=== PATIENT | female | born 1985 | race Caucasian/White ===

== ENCOUNTER 2022-02-23 16:26 | Emergency (ER) | payer MEDICAID ==
[~2022-02-23] VITALS: Ht 170.2 cm; Wt 66.4 kg
[2022-02-23 17:36] VITALS: BP 120/76
[2022-02-23 17:53] VITALS: BP 120/76
[2022-02-23] MEDS ORDERED: DOXY-690 PO (19:58)
[2022-02-23] MEDS ORDERED: cefTRIAXone 1,000 MG in LIDOCAINE MPF 1% 2.1 ML IM ONE (20:00)
[2022-02-23] MEDS ORDERED: cefTRIAXone 1,000 MG VIAL ONE (20:01)
[2022-02-23] MEDS ORDERED: LIDOCAINE MPF 1% 5 ML ONE (20:01)
== END 2022-02-23 20:08 | disposition home or self-care (01) ==
LOC: MED 16:26
DX: Z11.3 Encounter for screening for infections with a predominantly sexual mode of transmission (principal); Z88.1 Allergy status to other antibiotic agents; Z79.899 Other long term (current) drug therapy
CPT/HCPCS: 86592; 86703; 87491; 96372; 99283; J0696; J2001